=== PATIENT | female | born 1965 | race Caucasian/White ===

== ENCOUNTER → 2016-06-24 | Day surgery (SDC) | payer MEDICAID ==
[2016-06-24 09:48] LABS: HEMOGLOBIN 13.4 g/dL (12.2-16.2); LYMPH # 3.4 K/mm3 (0.7-4.5)
[2016-06-24 09:53] LABS: BUN 12 mg/dL (7-18)
[2016-06-24 09:54] LABS: GFR (ESTIMATED) 76 ML/MIN (59-)
--- NOTE | 2016-06-24 14:00 | RADIOLOGY REPORT PS360 ---
CARDIAC CATHETERIZATION DATE OF CATHETERIZATION:06/24/2016 11:00 AM PROCEDURES: 1. Left heart catheterization 2. Left ventriculogram 3. Selective coronary angiogram INDICATION FOR TEST: 1. Known coronary artery disease with history of stenting 2. Ongoing tobacco abuse 3. Accelerated angina pectoris class III and IV 4. Refusal for stress testing Informed consent was obtained prior to the procedure. COMPLICATIONS: None ESTIMATED BLOOD LOSS: Less than 10 ml. TECHNIQUE: One percent lidocaine was used to anesthetize the right groin. The right femoral artery was accessed via the Seldinger technique. A 4-Portuguese sheath was placed in the right femoral artery. The JL-4 and JR-4 catheter was also used to perform left heart catheterization and left ventriculography. At the end of the procedure the patient was transferred to the post-op holding area in stable condition for arterial sheath removal. ANGIOGRAPHIC RESULTS: 1. The left main artery normal 2. The left anterior descending artery has mild proximal 10% stenoses with mid vessel 10% stenosis. The first diagonal artery also has a mid vessel 10-20% eccentric stenosis 3. The circumflex artery is a large vessel with mild luminal irregularities 10-20% maximum stenosis 4. The right coronary artery is a dominant vessel and has a stent immediately distal to the RV marginal branch which is widely patent free of in-stent restenosis with excellent proximal and distal transitioning into the [place] artery. There are luminal irregularities throughout the right coronary artery with no stenosis greater than 10% 5. The MAGANA ventriculogram reveals normal 65% 6. The left ventricular end-diastolic pressure 10 mmHg IMPRESSION: 1. Widely patent stent in the mid dominant right coronary artery 2. Nonflow limiting disease in the LAD circumflex artery 3. Likely endothelial dysfunction from ongoing tobacco usage giving the accelerated form of angina pectoris 4. Normal ejection fraction 5. Normal left ventricular end-diastolic pressure PLAN: 1. Absolute tobacco cessation 2. Intensification of antianginal medications 3. Risk factor modification
--- NOTE | 2016-06-24 14:00 | RADIOLOGY REPORT PS360 ---
CARDIAC CATHETERIZATION DATE OF CATHETERIZATION:06/24/2016 11:00 AM PROCEDURES: 1. Left heart catheterization 2. Left ventriculogram 3. Selective coronary angiogram INDICATION FOR TEST: 1. Known coronary artery disease with history of stenting 2. Ongoing tobacco abuse 3. Accelerated angina pectoris class III and IV 4. Refusal for stress testing Informed consent was obtained prior to the procedure. COMPLICATIONS: None ESTIMATED BLOOD LOSS: Less than 10 ml. TECHNIQUE: One percent lidocaine was used to anesthetize the right groin. The right femoral artery was accessed via the Seldinger technique. A 4-[place] sheath was placed in the right femoral artery. The JL-4 and JR-4 catheter was also used to perform left heart catheterization and left ventriculography. At the end of the procedure the patient was transferred to the post-op holding area in stable condition for arterial sheath removal. ANGIOGRAPHIC RESULTS: 1. The left main artery normal 2. The left anterior descending artery has mild proximal 10% stenoses with mid vessel 10% stenosis. The first diagonal artery also has a mid vessel 10-20% eccentric stenosis 3. The circumflex artery is a large vessel with mild luminal irregularities 10-20% maximum stenosis 4. The right coronary artery is a dominant vessel and has a stent immediately distal to the RV marginal branch which is widely patent free of in-stent restenosis with excellent proximal and distal transitioning into the [place] artery. There are luminal irregularities throughout the right coronary artery with no stenosis greater than 10% 5. The MAGANA ventriculogram reveals normal 65% 6. The left ventricular end-diastolic pressure 10 mmHg IMPRESSION: 1. Widely patent stent in the mid dominant right coronary artery 2. Nonflow limiting disease in the LAD circumflex artery 3. Likely endothelial dysfunction from ongoing tobacco usage giving the accelerated form of angina pectoris 4. Normal ejection fraction 5. Normal left ventricular end-diastolic pressure PLAN: 1. Absolute tobacco cessation 2. Intensification of antianginal medications 3. Risk factor modification
[2016-06-24 15:01] VITALS: BP 106/68
== END ==
LOC: CATHLAB 07:31
PROVIDERS: Internal Medicine
PROC: B2111ZZ Fluoroscopy of Multiple Coronary Arteries using Low Osmolar Contrast (ICD-10-PCS; 2016-06-24)
PROC: B2151ZZ Fluoroscopy of Left Heart using Low Osmolar Contrast (ICD-10-PCS; 2016-06-24)
PROC: 4A023N7 Measurement of Cardiac Sampling and Pressure, Left Heart, Percutaneous Approach (ICD-10-PCS; principal; 2016-06-24 12:15)
DX: I25.119 Atherosclerotic heart disease of native coronary artery with unspecified angina pectoris (principal); Z72.0 Tobacco use; Z95.5 Presence of coronary angioplasty implant and graft
CPT/HCPCS: C1725; C1769; Q9967